=== PATIENT | female | born 1970 | race Caucasian/White ===

== ENCOUNTER 2025-08-02 13:47 | Emergency (ER) | payer BC, MEDICAID ==
[~2025-08-02] VITALS: Ht 170.2 cm; Wt 122.5 kg
[~2025-08-02 13:47] MED LIST: AMLO10TA59 PO; AMOX-430 PO; BUPR8TAB4 SL; FERR325T28 PO; FLUO20CA42 PO; GABA600T12 PO; QUET100T PO
[2025-08-02 13:55] VITALS: BP 119/68
[2025-08-02 15:39] VITALS: BP 119/68; O2SAT 98
== END 2025-08-02 15:40 | disposition home or self-care (01) ==
LOC: ER 13:47
DX: S52.612D Displaced fracture of left ulna styloid process, subsequent encounter for closed fracture with routine healing (principal); Z48.89 Encounter for other specified surgical aftercare; Z79.899 Other long term (current) drug therapy; X58.XXXD Exposure to other specified factors, subsequent encounter
CPT/HCPCS: 73090; 73560; A4606; A4663